=== PATIENT | male | born 1970 | race American Indian/Alaskan Native ===

== ENCOUNTER 2016-04-29 20:42 | Emergency (ER) | payer MEDICARE ==
[2016-04-29 22:04] LABS: Basophils % (Auto) 0.6 % (0.0-1.8); Eosinophils % (Auto) 2.2 % (0.0-4.3); Hematocrit 47.4 % (35.5-45.6); Hemoglobin 15.7 gm/dl (11.8-15.2); Mean Corpuscular HGB Conc 33 % (32-34); Mean Corpuscular Hemoglobin 28 pg (28-32); Mean Corpuscular Volume 85 fl (84-94); Platelet Count 190 K/mm3 (140-440); Red Blood Count 5.59 M/mm3 (3.65-5.03); Red Cell Distribution Width 14.4 % (13.2-15.2); White Blood Count 13.7 K/mm3 (4.5-11.0)
[2016-04-29 22:27] LABS: Alanine Aminotransferase 28 units/L (7-56); Albumin 4.2 g/dL (3.9-5); Albumin/Globulin Ratio 1.3 %; Alkaline Phosphatase 56 units/L (35-129); Anion Gap 19 mmol/L; Bilirubin,Total 0.2 mg/dL (0.1-1.2); Blood Urea Nitrogen 10 mg/dL (9-20); Calcium 9.2 mg/dL (8.4-10.2); Carbon Dioxide 25 mmol/L (22-30); Chloride 98.8 mmol/L (98-107); Glucose 88 mg/dL (75-100); Lipase 23 units/L (13-60); Potassium 3.7 mmol/L (3.6-5.0); Sodium 139 mmol/L (137-145); Total Protein 7.5 g/dL (6.3-8.2)
[2016-04-30 00:13] LABS: Mucus,Urine FEW /HPF; WBC,Urine < 1.0 /HPF (0.0-6.0)
[2016-04-30 00:38] LABS: Bilirubin,Urine Negative (Negative); Blood,Urine Negative (Negative); Ketones,Urine Negative (Negative); Protein,Urine <15 mg/dL mg/dL (Negative)
[2016-04-30 00:39] LABS: Leukocyte Esterase,Urine Negative (Negative); Nitrite,Urine Negative (Negative); Urobilinogen,Urine 0.2 mg/dL (<2.0)
[2016-04-30] MEDS ORDERED: TYLENOL PO ONE (01:13)
--- NOTE | 2016-04-30 07:43 | Emergency Department Report ---
ED General Adult HPI - General Chief complaint: Abdominal Pain Stated complaint: SOB/THROAT SWELLING/FEVER Time Seen by Provider: 04/30/16 07:42 Source: patient Mode of arrival: Ambulatory Limitations: No Limitations - History of Present Illness Initial comments: The patient states that he has had a sore throat since yesterday. He is able swallow. He's had no respiratory symptoms or substantial swelling of his neck. He denies fever or chills. Somehow he consider this related to being constipated last week and having to take a laxative. He denies any abdominal pain. He denies rash. He is only complaining of a sore throat now. -: Gradual, hour(s), days(s) Quality: burning (sore throat only) Consistency: intermittent Improves with: none Worsens with: none Associated Symptoms: denies other symptoms Treatments Prior to Arrival: none - Related Data Previous Rx's Medication Instructions Recorded Last Taken Type HYDROcodone/APAP 5-325 [[place] 1 each PO Q6HR PRN #10 tablet 04/30/16 Unknown Rx 5/325] Allergies Allergy/AdvReac Type Severity Reaction Status Date / Time No Known Allergies Allergy Verified 06/11/15 03:12 ED Review of Systems ROS: Stated complaint: SOB/THROAT SWELLING/FEVER Other details as noted in HPI Constitutional: denies: chills, fever Eyes: denies: eye pain, eye discharge, vision change ENT: as per HPI, throat pain. denies: ear pain Respiratory: denies: cough, shortness of breath, wheezing Cardiovascular: denies: chest pain, palpitations Endocrine: no symptoms reported Gastrointestinal: constipation (last week). denies: abdominal pain, nausea, diarrhea Genitourinary: denies: urgency, dysuria Musculoskeletal: denies: back pain, joint swelling, arthralgia Skin: denies: rash, lesions Neurological: denies: headache, weakness, paresthesias Psychiatric: denies: anxiety, depression Hematological/Lymphatic: denies: easy bleeding, easy bruising ED Past Medical Hx - Past Medical History Previous Medical History?: No - Surgical History Past Surgical History?: Yes Additional Surgical History: appendectomy - Social History Smoking Status: Current Every Day Smoker Substance Use Type: None - Medications Home Medications: Home Medications Medication Instructions Recorded Confirmed Last Taken Type HYDROcodone/APAP 5-325 [[place] 1 each PO Q6HR PRN #10 tablet 04/30/16 Unknown Rx 5/325] ED Physical Exam - General Limitations: No Limitations General appearance: alert, in no apparent distress - Head Head exam: Present: atraumatic, normocephalic - Eye Eye exam: Present: normal appearance - ENT ENT exam: Present: mucous membranes moist, other (bilateral exudative tonsillitis no abscess no uvula deviation airway is patent) - Neck Neck exam: Present: normal inspection, full ROM, lymphadenopathy (mild-to- moderate anterior cervical). Absent: tenderness, meningismus, thyromegaly - Respiratory Respiratory exam: Present: normal lung sounds bilaterally. Absent: respiratory distress - Cardiovascular Cardiovascular Exam: Present: regular rate, normal rhythm. Absent: systolic murmur, diastolic murmur, rubs, gallop - GI/Abdominal GI/Abdominal exam: Present: soft, normal bowel sounds. Absent: distended, tenderness, guarding, rebound, rigid, organomegaly (no palpable spleen) - Rectal Rectal exam: Present: deferred - Extremities Exam Extremities exam: Present: normal inspection - Back Exam Back exam: Present: normal inspection. Absent: CVA tenderness (R), CVA tenderness (L) - Neurological Exam Neurological exam: Present: alert, oriented X3, CN II-XII intact. Absent: motor sensory deficit - Psychiatric Psychiatric exam: Present: normal affect, normal mood - Skin Skin exam: Present: warm, dry, intact, normal color. Absent: rash ED Course Vital Signs 04/29/16 04/30/16 04/30/16 20:53 01:11 02:20 Temperature 98.7 F 98.7 F 98.3 F Pulse Rate 98 H 83 85 Respiratory 22 20 Rate Blood Pressure 133/87 Blood Pressure 147/97 136/89 [Right] O2 Sat by Pulse 98 100 100 Oximetry 04/30/16 04/30/16 04/30/16 05:58 06:57 07:30 Temperature Pulse Rate 84 78 Respiratory 18 20 16 Rate Blood Pressure Blood Pressure 137/82 136/84 [Right] O2 Sat by Pulse 98 99 99 Oximetry 04/30/16 08:27 Temperature Pulse Rate Respiratory 16 Rate Blood Pressure Blood Pressure [Right] O2 Sat by Pulse Oximetry - Reevaluation(s) Reevaluation #1: The patient was given analgesia, Decadron and Bicillin. He is able take by mouth and discharged in stable condition. 04/30/16 08:43 ED Medical Decision Making - Lab Data Result diagrams: 04/29/16 21:43 04/29/16 21:43 Laboratory Results - last 24 hr 04/29/16 04/29/16 04/29/16 21:43 21:43 Unknown WBC 13.7 H RBC 5.59 H Hgb 15.7 H Hct 47.4 H MCV 85 MCH 28 MCHC 33 RDW 14.4 Plt Count 190 Lymph % (Auto) 20.8 Major % (Auto) 10.2 H Eos % (Auto) 2.2 Baso % (Auto) 0.6 Lymph # 2.8 Major # 1.4 H Eos # 0.3 Baso # 0.1 Seg Neutrophils % 66.2 Seg Neutrophils # 9.0 H Sodium 139 Potassium 3.7 Chloride 98.8 Carbon Dioxide 25 Anion Gap 19 BUN 10 Creatinine 1.0 Estimated GFR > 60 BUN/Creatinine Ratio 10.00 Glucose 88 Calcium 9.2 Total Bilirubin 0.2 AST 16 ALT 28 Alkaline Phosphatase 56 Total Protein 7.5 Albumin 4.2 Albumin/Globulin Ratio 1.3 Lipase 23 Urine Color Yellow Urine Turbidity Clear Urine pH 6.0 Ur Specific [place] 1.020 Urine Protein <15 mg/dl Urine Glucose (UA) Negative Urine Ketones Negative Urine Blood Negative Urine Nitrite Negative Ur Reducing Substances Not Reportable Urine Bilirubin Negative Urine Ictotest Not Reportable Urine Urobilinogen 0.2 Ur Leukocyte Esterase Negative Urine WBC (Auto) < 1.0 Urine RBC (Auto) 1.0 U Epithel Cells (Auto) < 1.0 Urine Mucus Few Critical care attestation.: If time is entered above; I have spent that time in minutes in the direct care of this critically ill patient, excluding procedure time. ED Disposition Clinical Impression: Exudative tonsillitis, Mononucleosis Disposition: DISCHARGED TO HOME OR SELFCARE Is pt being admited?: No Does the pt Need Aspirin: No Condition: Stable Instructions: Tonsillitis (ED), Mononucleosis (ED) Additional Instructions: There is a possibility that you have mononucleosis. You should avoid strenuous exercise. He should follow-up with your primary care provider. Rx as needed for pain. Increase fluids. Transmission precaution. This can be a persistent illness. Follow up with your PCP. Prescriptions: HYDROcodone/APAP 5-325 [[place] 5/325] 1 each PO Q6HR PRN #10 tablet PRN Reason: Pain Referrals: HUNTER ALMONTE MD [Primary Care Provider] - 2-3 Days Time of Disposition: 08:46
[2016-04-30 07:52] VITALS: BP 136/84
[2016-04-30] MEDS ORDERED: DECADRON IM ONE (08:09)
[2016-04-30] MEDS ORDERED: NORCO 5/325 PO ONE (08:09)
[2016-04-30] MEDS ORDERED: BICILLIN L-A IM ONE (08:09)
== END 2016-04-30 08:47 | disposition home or self-care (01) ==
LOC: ED 20:42
DX: J03.90 Acute tonsillitis, unspecified (principal); B27.90 Infectious mononucleosis, unspecified without complication; F17.200 Nicotine dependence, unspecified, uncomplicated
CPT/HCPCS: 36415; 80053; 81001; 83690; 85025; 96372; 99283; J0561; J1100